=== PATIENT | male | born 1990 | race Caucasian/White ===

== ENCOUNTER 2024-10-11 02:14 | Outpatient (CLI) | payer BC, SELFPAY ==
--- NOTE | 2024-10-11 | DI.RAD_ITS ---
Exam(s) XR SHOULDER RT COMPLETE 2+V EXAM: XR SHOULDER RT COMPLETE 2+V CLINICAL HISTORY: Sprain of rotator cuff, S46.011A; strain of muscles and tendons of rotator. TECHNIQUE: 2D digital imaging was performed. Five views. COMPARISON: No exams were available for comparison FINDINGS: BONES: No acute fracture is present. No bony destructive lesion is seen. JOINTS: No dislocation present. No AC joint widening. Mild degenerative changes at the AC joint. SOFT TISSUE: Normal. IMPRESSION: Mild degenerative changes of the AC joint DATA REPOSITORY: RADIATION DOSE DELIVERED:
== END 2024-10-11 02:34 ==
PROVIDERS: PCP Nurse Practitioner Family; Visit Provider Nurse Practitioner Family
DX: M19.011 Primary osteoarthritis, right shoulder (principal)
CPT/HCPCS: 73030

== ENCOUNTER 2024-10-18 01:54 | Outpatient (CLI) | payer BC, SELFPAY ==
[2024-10-18 08:57] LABS: Abs Immature Grans 0.01 10^3/uL (0.0-0.06); Absolute Basophil Count 0.05 10^3/uL (0.0-0.2); Absolute Lymphocyte Count 1.47 10^3/uL (1.2-3.4); Absolute Monocyte Count 0.35 10^3/uL (0.1-0.8); Absolute Neutrophil Count 3.07 10^3/uL (1.2-6.7); Eosinophils % 3.9 %; HCT 47.3 % (40.0-50.0); HGB 16.4 g/dL (13.5-17.5); Immature Grans % 0.2 %; Lymphocytes % 28.5 %; MCH 29.5 pg (27.0-33.0); MCHC 34.7 % (32.0-36.0); MCV 85 fL (80-95); MPV 10.7 fL (8.0-11.0); Monocytes % 6.8 %; Neutrophils % 59.6 %; Platelet Count 238 10^3/uL (130-400); RBC 5.55 10^6/uL (4.36-5.78); RDW 12.2 % (11.8-14.1); RDW-SD 37.2 fL; WBC 5.15 10^3/uL (4.4-10.8)
[2024-10-18 09:04] LABS: Hemoglobin A1C 4.9 % (<5.7)
[2024-10-18 09:35] LABS: ALT 38 U/L (16-63); AST 21 U/L (15-37); Albumin 3.9 g/dL (3.4-5.0); Alkaline Phosphatase 114 U/L (46-116); Anion Gap 7.9 mmol/L (3-11); BUN 13 mg/dL (7-18); CO2 29.1 mmol/L (21.0-32.0); CREATININE 1.1 mg/dL (0.70-1.30); Calcium 9.2 mg/dL (8.5-10.1); Calculated LDL 79 mg/dL (<100); Chloride 106 mmol/L (98-107); Cholesterol 133 mg/dL (<200); Estimated GFR 89.78 (mL/min/1.73m2); Glucose 100 mg/dL (74-106); HDL Cholesterol 38 mg/dL (40-60); Potassium 4.3 mmol/L (3.5-5.1); Sodium 143 mmol/L (136-145); TSH (W/Ref FT4) 1.38 uIU/mL (0.36-3.74); Triglyceride 82 mg/dL (<150)
[2024-10-18 18:41] LABS: T3,Free 4.4 pg/mL (2.8-5.3)
[2024-10-18 20:03] LABS: PSA, Screening 0.3 ng/mL (<=2.5)
[2024-10-18 20:11] LABS: FSH 4.2 mIU/mL (1.4-18.1)
[2024-10-25 14:20] LABS: Testosterone, Total 260 ng/dL (240-950)
== END 2024-10-18 01:55 | disposition home or self-care (01) ==
LOC: LBO 01:54
PROVIDERS: PCP Nurse Practitioner Family; Visit Provider Nurse Practitioner Family
DX: N52.9 Male erectile dysfunction, unspecified (principal); I10 Essential (primary) hypertension
CPT/HCPCS: 36415; 80053; 80061; 84153; 84402; 84403; 83001; 83002; 83036; 84443; 84481; 85025

== ENCOUNTER 2024-10-25 15:39 | Outpatient (CLI) | payer BC, SELFPAY ==
--- NOTE | 2024-10-25 08:30 | DI.RAD_ITS ---
Exam(s) XR ELBOW RT LIMITED EXAM: XR ELBOW RT LIMITED CLINICAL HISTORY: RIGHT ELBOW PAIN. TECHNIQUE: 2D digital imaging was performed of the left elbow. Two images were obtained. AP and la teral views were obtained. COMPARISON: No exams were available for comparison FINDINGS: BONES: No acute fracture is present. No bony destructive lesion is seen. JOINTS: The elbow is normally aligned. No joint effusion is seen. SOFT TISSUE: Normal. IMPRESSION: Unremarkable radiographs of the right elbow. DATA REPOSITORY: RADIATION DOSE DELIVERED:
== END 2024-10-25 15:40 | disposition home or self-care (01) ==
LOC: DIORS 15:40
PROVIDERS: PCP Nurse Practitioner Family; Visit Provider Student in an Organized Health Care Education/Training Program
DX: M25.521 Pain in right elbow (principal)
CPT/HCPCS: 73070

== ENCOUNTER 2024-11-20 01:17 | Outpatient (CLI) | payer BC, SELFPAY ==
--- NOTE | 2024-11-20 06:30 | DI.MRI_ITS ---
Exam(s) MR UPPER JOINT RT WO EXAM: MR UPPER JOINT RT WO CLINICAL HISTORY: ? RUPTURE traumatic rt distal biceps tendon,S46.211a,strain. TECHNIQUE: Multiplanar multisequence MRI was performed. COMPARISON: Plain films 25 October 2024 FINDINGS: Elbow joint: No joint effusion Bones: There is no fracture or contusion pattern. Biceps tendon: Intact. No tendinosis. Brachialis tendon: Intact. No tendinosis. Common flexor tendons: Intact. No tendinosis. Common extensor tendons: Intact. No tendinosis. Soft tissues: Unremarkable. IMPRESSION: Normal MRI examination of the elbow. DATA REPOSITORY:
== END 2024-11-20 01:37 ==
LOC: DI 01:17
PROVIDERS: PCP Nurse Practitioner Family; Visit Provider Student in an Organized Health Care Education/Training Program
DX: S46.211A Strain of muscle, fascia and tendon of other parts of biceps, right arm, initial encounter (principal); X58.XXXA Exposure to other specified factors, initial encounter
CPT/HCPCS: 73221

== ENCOUNTER 2025-04-27 10:34 | Outpatient (CLI) | payer BC, SELFPAY ==
--- NOTE | 2025-04-27 09:15 | DI.RAD_ITS ---
Exam(s) XR HIP PELVIS ADULT BL EXAM: XR HIP PELVIS ADULT BL CLINICAL HISTORY: F/U BILATERAL BELKSI. TECHNIQUE: 2D digital imaging was performed. COMPARISON: No exams were available for comparison FINDINGS: 3 views No evidence of fractures. Bilateral hip prostheses are evident. Which could appears unremarkable. On the left side there is an osteophytic density just above the greater trochanter which measures 1.9 x 1.5 cm. This does not have an acute appearance (but there are no previous for comparison). IMPRESSION: Bilateral hip prostheses as described above. DATA REPOSITORY: RADIATION DOSE DELIVERED:
== END 2025-04-27 10:35 | disposition home or self-care (01) ==
LOC: DIORS 10:34
PROVIDERS: PCP Nurse Practitioner Family; Visit Provider Physician Assistant
DX: Z87.768 Personal history of other specified (corrected) congenital malformations of integument, limbs and musculoskeletal system (principal); Z96.643 Presence of artificial hip joint, bilateral
CPT/HCPCS: 73521

== ENCOUNTER 2025-05-30 10:22 | Outpatient (CLI) | payer BC, SELFPAY ==
--- NOTE | 2025-05-30 05:15 | DI.NM_ITS ---
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 TECHNIQUE: Injected Dose: 25 mCi Tc-99m MDP COMPARISON: CR XR SHOULDER RT COMPLETE 2+V from 10/11/2024 CR XR HIP PELVIS ADULT BL from 04/27/[address] LOWER EXTREMITY LT WO from 05/30/[address] LOWER EXTREMITY RT WO from 05/30/2025 FINDINGS: There are photopenic areas bilaterally in the hips consistent with the patient's bilateral total hip arthroplasties. Perfusion: Symmetric. Blood Pool: Symmetric. Delayed: No focal area of intense suspicious uptake is seen in the region of the hip arthroplasties. There is increased radiotracer uptake seen in the region of the acromioclavicular joints, right greater than left most suggestive of osteoarthritis. There is mild increased activity on the delayed images at the right patella. This is nonspecific. X-rays of the right knee should be considered. IMPRESSION: There is normal uptake seen around the right hips. No scintigraphic findings to suggest loosening are seen in the patient's bilateral total hip arthroplasties. DATA REPOSITORY:
--- NOTE | 2025-05-30 08:20 | DI.CT_ITS ---
Exam(s) CT LOWER EXTREMITY RT WO EXAM: CT LOWER EXTREMITY RT WO CLINICAL HISTORY: pain, ?loosening T84.84XA Z96.643 BILAT ARTIFICIAL HIP M25.551 PAIN RT HIP. TECHNIQUE: Imaging Protocol: Axial computed tomography images with coronal and sagittal reformatted images were created and reviewed. COMPARISON: CR XR HIP PELVIS ADULT BL from 04/27/2025 FINDINGS: There is artifact from the patient's right total hip arthroplasty. Bones: The patient has a right total hip arthroplasty. There are no suspicious lucencies around the orthopedic hardware to suggest loosening at this time. Bony alignment is satisfactory. There is no acute fracture or dislocation. No destructive changes are seen in the bones. The bones are normally mineralized. No lytic or sclerotic lesions are identified. Soft Tissues: There is no soft tissue mass or focal fluid collections seen. IMPRESSION: There is no evidence to suggest loosening of the patient's right total hip arthroplasty at this time. RADIATION DOSE DELIVERED: 696.25mGy.cm Total DLP 696.25mGy.cm Total DLP DATA REPOSITORY: All CT scans at this facility are submitted to the National Radiology Data Registry (NRDR) Dose Index Registry (DIR) with the [employer] ([employer]). RADIATION OPTIMIZATION: All CT scans at this facility use at least one of these dose optimization techniques: automated exposure control; mA and/or kV adjustment per patient size (includes targeted exams where dose is matched to clinical indication); or iterative reconstruction.
--- NOTE | 2025-05-30 08:30 | DI.CT_ITS ---
Exam(s) CT LOWER EXTREMITY LT WO EXAM: CT LOWER EXTREMITY LT WO CLINICAL HISTORY: pain, ?loosening T84.84XA Z96.643 BILAT ARTIFICIAL HIP M25.552 PAIN LT HIP. TECHNIQUE: Imaging Protocol: Axial computed tomography images with coronal and sagittal reformatted images were created and reviewed. COMPARISON: CR XR HIP PELVIS ADULT BL from 04/27/2025 FINDINGS: There is artifact from the patient's left total hip arthroplasty. Bones: The patient has a left total hip arthroplasty. There is mild lucency seen around the femoral stem component of the orthopedic hardware. Bony alignment is satisfactory. No erosive changes are seen. Well corticated osseous densities are seen at the greater trochanter which are chronic. There is no acute fracture or dislocation. Soft Tissues: There is no soft tissue mass or focal fluid collection seen on this noncontrast examination. IMPRESSION: Lucency seen around the femoral stem component of the left total hip arthroplasty. Loosening cannot be excluded. Bone scan correlation should be considered. RADIATION DOSE DELIVERED: 696.25mGy.cm Total DLP 696.25mGy.cm Total DLP DATA REPOSITORY: All CT scans at this facility are submitted to the National Radiology Data Registry (NRDR) Dose Index Registry (DIR) with the [employer] ([employer]). RADIATION OPTIMIZATION: All CT scans at this facility use at least one of these dose optimization techniques: automated exposure control; mA and/or kV adjustment per patient size (includes targeted exams where dose is matched to clinical indication); or iterative reconstruction.
== END 2025-05-30 10:42 ==
LOC: DI 10:24
PROVIDERS: PCP Nurse Practitioner Family; Visit Provider Student in an Organized Health Care Education/Training Program
DX: T84.84XA Pain due to internal orthopedic prosthetic devices, implants and grafts, initial encounter (principal); Z96.643 Presence of artificial hip joint, bilateral; M25.551 Pain in right hip; M25.552 Pain in left hip
CPT/HCPCS: 73700; 78315